=== PATIENT | male | born 1990 | race Asian ===

== ENCOUNTER 2024-05-23 09:48 | Outpatient (AMB) | payer OTHER, SELFPAY ==
--- NOTE | 2024-05-23 11:30 | MHC.OFFWIV ---
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 He had what sounds to be an ORIF in 03/2019 following an injury/fall. He states he had surgery at [facility] however I cannot locate records. He states that since surgery, he has had pain in that elbow, difficulty with some ROM movements, and numbness/tingling in right hand. He also has protruding area on dorsal aspect of arm at area of lateral epicondyle, which he states has been present since surgery. At 1 point he was referred to orthopedic surgeon in [place]. 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 This was done in 07/2020, and unfortunately patient never was scheduled for any follow-up with this surgeon. He was also recently in [place] earlier this month and had an x-ray done there. He was told that his hardware appears to large and should be removed. He does not have a PCP here, however is scheduled for a new patient visit in October of 2024. [employer] [id number] used for this visit. [facility] Social History Patient Tobacco Use Status: Current everyday Tobacco user Review of Systems Const All systems reviewed & are unremarkable except as noted in HPI and below Physical Exam Vital Signs: Last Vital Signs Pulse 71 05/23/24 11:31 BP 130/98 H 05/23/24 11:31 Pulse Ox 98 05/23/24 11:31 Oxygen Delivery Method Room Air 05/23/24 11:31 BMI result Body Mass Index 24.9 Const General: cooperative, healthy appearing and no acute distress Limitations: language barrier (Mandarin speaking) HEENT Head: Yes normal to inspection Resp Effort & Inspection: normal respiratory effort Skin General skin exam: no rashes or lesions noted Neuro General: moves all extremities and deep tendon reflexes 2+ bilaterally Extrem Right upper extremity: normal capillary refill and elbow/forearm Details: abnormal to inspection (enlarged area over lat epicondyle, no erythema or fluctuance), abnormal ROM (limited flexion and pronation/supination, full extension, ) and deformity (as noted) Location: of the elbow Psych Appearance: grossly normal Mental Status: mental status grossly normal Speech and movement: Normal speech and movement present Assessment & Plan Assessment & Plan (1) Right elbow pain: Code(s): M25.521 - Pain in right elbow Plan: Discussed with patient and partner present with him that he should have orthopedic evaluation. No acute findings on exam - complaints have been chronic since surgery. He was seen in [place] earlier this month and XR imaging indicated that perhaps hardware should be removed/replaced - per patient. He is not established with ortho in this area since his surgery in 2019. He would like to go to [facility] if possible. [facility] has an ortho urgent care in [place] which is open today. I informed patient of this and he is going to be seen there today if possible. All questions were answered. Patient will also f/u with PCP. Visit via [employer]. Coding Level of Care Code Est Pt Level 4 (45168) Diagnoses Right elbow pain M25.521
[2024-05-23 11:31] VITALS: BP 130/98; PULSE 71; O2SAT 98; BMI 24.9
== END 2024-05-23 12:54 | disposition home or self-care (01) ==
PROVIDERS: Visit Provider Nurse Practitioner Family
DX: M25.521 Pain in right elbow (principal)

== ENCOUNTER → 2024-05-23 09:48 | Outpatient (BNVA) | payer OTHER, SELFPAY | PROVIDERS: Visit Provider Nurse Practitioner Family | DX: M25.521 Pain in right elbow (principal) | CPT/HCPCS: 99212 ==

== ENCOUNTER 2024-11-04 12:43 | Outpatient (AMB) | payer OTHER, SELFPAY ==
[2024-11-04 12:53] VITALS: BP 122/80; PULSE 62; O2SAT 96; BMI 25.8
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
== END 2024-11-04 13:17 | disposition home or self-care (01) ==
PROVIDERS: Visit Provider Nurse Practitioner Family
DX: Z00.01 Encounter for general adult medical examination with abnormal findings (principal)

== ENCOUNTER → 2024-11-04 12:43 | Outpatient (BNVA) | payer OTHER, SELFPAY | PROVIDERS: Visit Provider Nurse Practitioner Family | DX: Z00.01 Encounter for general adult medical examination with abnormal findings (principal); F17.210 Nicotine dependence, cigarettes, uncomplicated; Z71.6 Tobacco abuse counseling; Z98.890 Other specified postprocedural states | CPT/HCPCS: 96127; 99385 ==

== ENCOUNTER 2024-11-24 09:16 | Outpatient (REF) | payer OTHER, SELFPAY ==
[2024-11-24 10:11] LABS: MANUAL DIFF FLAG NO
[2024-11-24 10:21] LABS: Appearance Urine Clear; Color Urine Yellow; Glucose Urine UA Negative (Negative); Leukocyte Esterase Urine Negative (Negative); Nitrite Urine Negative (Negative); Urine Blood Negative (Negative); Urine Ketones Negative (Negative); Urine Protein Negative (Neg-Trace)
[2024-11-24 10:33] LABS: Basophils Percent Auto 0.4 % (0-2); Eosinophils Absolute Auto 0.1 X10*3/uL (0.0-0.4); Eosinophils Percent Auto 1.3 % (0-4); Hematocrit 44.7 % (42.0-52.0); Hemoglobin 15.2 g/dl (14.0-18.0); Imm Gran Abs Auto 0.02 X10*3/uL (0.00-0.03); Imm Gran Pct Auto 0.3 % (0.0-0.4); Lymphocytes Absolute Auto 2.8 X10*3/uL (1.2-4.9); Lymphocytes Percent Auto 40.8 % (20-40); Mean Corpuscular Hemoglobin 30.8 pg (27.0-33.0); Mean Corpuscular Volume 90.5 fL (80.0-98.0); Mean Platelet Volume 9.7 fL (9.4-12.4); Monocytes Absolute Auto 0.5 X10*3/uL (0.1-1.2); Monocytes Percent Auto 7.9 % (2-11); Neutrophils Absolute Auto 3.4 x10*3/uL (2.0-8.3); Neutrophils Percent Auto 49.3 % (45-73); Platelet Count 211 X10*3/uL (160-400); Red Blood Count 4.94 X10*6/uL (4.60-5.80); White Blood Count 6.8 X10*3/uL (4.8-10.8)
[2024-11-24 11:16] LABS: Alanine Aminotransferase 71 U/L (0-40); Albumin Level 4.5 g/dL (3.5-5.0); Alkaline Phosphatase 71 U/L (39-117); Anion Gap 10 (12-20); Aspartate Amino Transferase 36 U/L (5-37); Bilirubin Total 0.6 mg/dL (0.0-1.0); Blood Urea Nitrogen 11 mg/dL (9-16); Calcium 8.9 mg/dL (8.4-10.2); Carbon Dioxide 26 mmol/L (22-29); Chloride 109 mmol/L (96-108); Cholesterol 179 mg/dL (<200); Estimated Glomerular Filt Rate > 60; Glucose Fasting 91 mg/dL (60-99); HDL Cholesterol 37 mg/dL (>40); LDL Cholesterol Calculated 114 mg/dL (<100); Potassium 3.8 mmol/L (3.3-5.1); Sodium 141 mmol/L (135-145); Total Protein 6.8 g/dL (6.5-8.0); Triglycerides 143 mg/dL (<150)
[2024-11-24 11:33] LABS: TSH reflex Free T4 1.63 uIU/mL (0.32-4.0)
== END 2024-11-24 09:17 | disposition home or self-care (01) ==
LOC: HO.HMGCLDS 09:16
PROVIDERS: PCP Nurse Practitioner Family; Visit Provider Nurse Practitioner Family
DX: Z00.01 Encounter for general adult medical examination with abnormal findings (principal)
CPT/HCPCS: 36415; 80053; 80061; 81003; 84443; 85025

== ENCOUNTER 2025-03-24 08:27 | Outpatient (REF) | payer OTHER, SELFPAY ==
--- NOTE | ~2025-03-24 | US_ITS ---
CLINICAL HISTORY: R74.8 - Abnormal levels of other serum enzymes US abdomen complete Comparison: None provided Findings: The liver is normal in size and echotexture. No focal liver lesions are seen or biliary dilatation. Gallbladder nondistended. Gallbladder wall not thickened at 2 mm. CBD nondilated at 4.5 mm. There are no gallstones. Sonographic Michelle's sign is negative. Right kidney measures 10 cm and left kidney measures 11 cm. No focal cortical renal lesions or signs of obstructive uropathy. Spleen unremarkable measuring 10 cm and without focal lesions. Pancreas not adequately visualized due to overlying bowel gas. No evidence of free fluid. IMPRESSION: 1. Normal complete abdominal ultrasound. This document has been electronically signed by: Brennon Sheffield MD on 03/24/2025 09:56:48
--- OUTSIDE RECORDS SUMMARY | 2025-03-24 09:05 | XMS_ITS | Encounter Summary ---
Author Organization [facility] Address [address] [place] [address] Phone Care Team Providers Care Periodicals Clerk Name Role Phone Drew Maldonado MD Primary Care Provider [phone] Encounter Details Date Type Department Care Team (Late st Contact Info) Description 08/04/2020 Procedure Pass [facility] [address] [place] [address] Social History Tobacco Use Types Packs/Day Years Used Date Smoking Tobacco: Never Assessed Sex and Gender Information Value Date Recorded Sex Assigned at Male 12/09/2019 4:13 PM EDT Legal Sex Male 10:12 AM EDT Gender Identity Male 12/09/2019 4:13 PM EDT Sexual Orientation Straight 12/09/2019 4: 13 PM EDT documented as of this encounter Plan of Treatment Not on file documented as of this encounter Visit Diagnoses Not on filedocumented in this encounter Care Teams Periodicals Clerk Relationship Specialty Start Date End Date Drew Maldonado MD [address] [place] [address] [place] [address] PCP - General Internal Medicine 08/14/19 documented as of this encounter Additional Source Comments The information contained in this document represents components of the legal health record. It is not the complete legal health record.[facility]
--- OUTSIDE RECORDS SUMMARY | 2025-03-24 09:05 | XMS_ITS | Encounter Summary ---
Author Organization [facility] Address [address] [place] [address] [place] [address] Phone Care Team Providers Care Forming Machine Tender Name Role Phone Drew Maldonado MD Primary Care Provider [phone] Reason for Referral * MRI/CAT Scan - Closed Specialty Diagnoses / Procedures Referred By Contac t Referred To Contact Radiology Diagnoses Closed fracture of right elbow, initial encounter Procedures CT 3D Reconstruction Elbow CHG 3D RENDERING W/INTERP&POSTPROC DIFF WORK STATION Dylan Garcia MD Phone: tel: fax: [email or web address] Referral ID Status Reason Start Date Expiration Date Visits Re quested Visits Authorized [id number] Closed 08/04/2020 08/04/2020 1 1 Encounter Details Date Type Department Care Team (Latest Contact Info) Description 08/04/2020 Ancillary Orders [facility] Department of Orthopaedic Surgery, Hand & Upper Extremity Service [address] [place] [address], [address], [address] [place] [address] Dylan Garcia MD [address] [place] [id number] [email or web address] Closed fracture of right elbow, initial encounter Social History Tobacco Use Types Packs/Day Years [...] on file documented as of this encounter Results * CT 3D Reconstruction Elbow (08/04/2020 8:35 PM EST) Anatomical Region Laterality Modality Elbow Left, Elbow Right Computed Tomography 08/05/2020 8:46 AM EST Impressions 08/05/2020 11:32 AM EST Radial head arthroplasty with unchanged lucency at the bone-metal interface. Old posttraumatic and postsurgical changes involving the lateral elbow and coronoid process. No acute fracture. 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 ATTESTATION: I, Dr. Marta Cain as teaching physician, have reviewed the images for this case and if necessary edited the report originally created by Dr. Alec Barba. Narrative 08/05/2020 11:32 AM EST TECHNIQUE: Diagnostic CT ELBOW WITHOUT CONTRAST (RIGHT), CT 3D RECONSTRUCTION ELBOW Sagittal and coronal reformatted images were obtained. COMPARISON: XR ELBOW 3 OR MORE VIEWS (RIGHT) ; XR ELBOW 3 OR MORE VIEWS (RIGHT) 15:34:33 FINDINGS: Again noted are postoperative changes from prior radial head arthroplasty with mild lucency at the bone-metal interface, similar to prior studies. Alignment is unchanged. There is no periprosthetic fracture. Lucent anchor tracks are seen in the humeral lateral epicondyle. Old posttraumatic and postsurgical changes involve the coronoid process with ossific fragments within the adjacent anterior soft tissues and heterotopic ossification in the lateral elbow. 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 There is small elbow joint effusion. There is diffuse thickening involving the proximal common extensor tendon/musculature, in keeping with postoperative changes, not well characterized on CT. No focal muscle atrophy. Procedure Note Marta Cain MD - 08/05/2020 TECHNIQUE: Diagnostic CT ELBOW WITHOUT CONTRAST (RIGHT), CT 3DRECONSTRUCTION ELBOW Sagittal and coronal reformatted images were obtained. COMPARISON: XR ELBOW 3 OR MORE VIEWS (RIGHT) ; XR ELBOW 3 ORMORE VIEWS (RIGHT) 15:34:33 FINDINGS: Again noted are postoperative changes from prior radial head arthroplastywith mild lucency at the bone-metal interface, similar to prior studies.Alignment is unchanged. There is no periprosthetic fracture. Lucent anchortracks are seen in the humeral lateral epicondyle. Old posttraumatic andpostsurgical changes involve the coronoid process with ossific fragmentswithin the adjacent anterior soft tissues and heterotopic ossification inthe lateral elbow. 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 There is small elbow joint effusion. There is diffuse thickening involving the proximal common extensortendon/musculature, in keeping with postoperative changes, not wellcharacterized on CT. No focal muscle atrophy. IMPRESSION: Radial head arthroplasty with unchanged lucency at the bone-metalinterface. Old posttraumatic and postsurgical changes involving the lateral elbow andcoronoid process. No acute fracture. 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 ATTESTATION: I, Dr. Marta Cain as teaching physician, have reviewedthe images for this case and if necessary edited the report originallycreated by Dr. Alec Barba. Dylan Garcia MD IMG CT Final Result documented in this encounter Visit Diagnoses Diagnosis Closed fracture of right elbow, initial encounter Closed fracture of right elbow, initial encounter documented in this encounter Care Teams Forming Machine Tender Relationship Specialty Start Date End Date Drew Maldonado MD [address] [place] [address] [place] [address] PCP - General Internal Medicine 08/14/19 documented as of this encounter Additional Source Comments The information contained in this document represents components of the legal health record. It is not the complete legal health record.[facility]
--- OUTSIDE RECORDS SUMMARY | 2025-03-24 09:05 | XMS_ITS | Encounter Summary ---
Author Organization [facility] Address [address] [place] [address] Phone Care Team Providers Care Shaper Set Up Operator Name Role Phone Drew Maldonado MD Primary Care Provider [phone] [phone] Encounter Details Date Type Department Care Team (Late st Contact Info) Description 08/04/2020 Procedure Pass [facility] [address] [facility] [place] [address] Social History Tobacco Use Types Packs/Day Years [...] on filedocumented in this encounter Care Teams Shaper Set Up Operator Relationship Specialty Start Date End Date Drew Maldonado MD [address] [place] [address] [place] [address] PCP - General Internal Medicine 08/14/19 documented as of this encounter Additional Source Comments The information contained in this document represents components of the legal health record. It is not the complete legal health record.[facility]
--- OUTSIDE RECORDS SUMMARY | 2025-03-24 09:05 | XMS_ITS | Clinical Summary ---
Author Organization [facility] Address [address] [place] [address] Phone Care Team Providers Care Nursery Technician Name Role Phone Drew Maldonado MD Primary Care Provider [phone] Social History Tobacco Use Types Packs/Day Years Used Date Smoking Tobacco: Never Assessed Education Answer Date Recorded Are you interested in more education? Not on maximino e 09/22/2022 Are you concerned about learning? Not on file 09/22/2022 No 09/22/2022 No 09/22/2022 Digital Access Answer Date Recorded No 10/24/2022 No 10/24/2022 Reliable internet access at home? Not on file 10/24/2022 Device with a working camera? Not on file Sex and Gender Information Value Date Recorded Sex Assigned at Male 12/09/2019 4:13 PM EDT Legal Sex Male 10:12 AM EDT Gender Identity Male 12/09/2019 4:13 PM EDT Sexual Orientation Straight 12/09/2019 4: 13 PM EDT Plan of Treatment Health Maintenance Due Date Last Done Comments Adult Td,Tdap Booster 1988 LIPID PANEL 1988 DEPRESSION SCREENING 2000 SMOKING Hx and SMOKELESS TOB ACCO SCREENING 2001 HEPATITIS C SCREENING 2006 HIV ONE-TIME SCREENING (18-6 5 YEARS) 2006 INFLUENZA VACCINE (#1) 2024 COVID-19 VACCINE (2024-2 6 season) 2025 HEPATITIS A VACCINES Aged Out No long er eligible based on patient's age to complete this topic HIB VACCINES Aged Out No longer eligi ble based on patient's age to complete this topic MENINGOCOCCAL VACCINES (ACWY) Aged Out No longer eligible based on patient's age to complete this topic MENINGOCOCCAL VACCINES (B) Aged Out N o longer eligible based on patient's age to complete this topic PNEUMOCOCCAL VACCINES (0-49 years) Aged Out No longer eligible based on patient's age to complete this topic Medical Devices Not on file [place] [address] ACO DODIE SNIDER [address] ACO ([place]) DODIE MEEK[address] [facility]CO [facility] [place] [address] [place] [address] [place] [address] [place] [address] ACO Care Teams Nursery Technician Relationship Specialty Start Date End Date Drew Maldonado MD [address] [place] [address] [place] [address] PCP - General Internal Medicine 08/14/19 Additional Source Comments The information contained in this document represents components of the legal health record. It is not the complete legal health record.[facility]
== END 2025-03-24 08:28 | disposition home or self-care (01) ==
LOC: HO.HMGCX 08:27
PROVIDERS: PCP Nurse Practitioner Family; Visit Provider Nurse Practitioner Family
DX: R74.8 Abnormal levels of other serum enzymes (principal)
CPT/HCPCS: 76700

== ENCOUNTER → 2025-03-24 08:29 | Outpatient (BNV) | payer OTHER, SELFPAY | PROVIDERS: PCP Nurse Practitioner Family; Visit Provider Radiology Diagnostic Radiology | DX: R74.8 Abnormal levels of other serum enzymes (principal) | CPT/HCPCS: 76700 ==

== ENCOUNTER 2025-04-06 10:03 | Outpatient (REF) | payer OTHER, SELFPAY ==
--- OUTSIDE RECORDS SUMMARY | 2025-04-06 11:40 | XMS_ITS | Encounter Summary ---
Author Organization [facility] Address [address] [place] [address] [place] [phone] Phone Care Team Providers Care Manager Supply Chain Planning Name Role Phone Drew Maldonado MD Primary Care Provider [phone] Reason for Referral * MRI/CAT Scan - Closed Specialty Diagnoses / Procedures Referred By Contac t Referred To Contact Radiology Diagnoses Closed fracture of right elbow, initial encounter Procedures CT 3D Reconstruction Elbow CHG 3D RENDERING W/INTERP&POSTPROC DIFF WORK STATION Dylan Garcia MD Phone: tel: fax: mailto:[email or web address] Referral ID Status Reason Start Date Expiration Date Visits Re quested Visits Authorized [id number] Closed 08/04/2020 08/04/2020 1 1 Encounter Details Date Type Department Care Team (Latest Contact Info) Description 08/04/2020 Ancillary Orders [facility] Department of Orthopaedic Surgery, Hand & Upper Extremity Service [address] [place] [address], [address] Floor, [address] [place] [address] Dylan Garcia MD [address] [place] [phone] [email or web address] Closed fracture of right elbow, initial encounter [...] with small elboweffusion. ATTESTATION: I, Dr. Marta Cian as teaching physician, have reviewedthe images for this case and if necessary edited the report originallycreated by Dr. Alec Barba. Dylan Garcia MD IMG CT Final Result documented in this encounter Visit Diagnoses Diagnosis Closed fracture of right elbow, initial encounter Closed fracture of right elbow, initial encounter documented in this encounter Care Teams Manager Supply Chain Planning Relationship Specialty Start Date End Date Drew Maldonado MD [address] [place] [address] [place] [address] PCP - General Internal Medicine 08/14/19 documented as of this encounter Additional Source Comments The information contained in this document represents components of the legal health record. It is not the complete legal health record.[facility]
--- OUTSIDE RECORDS SUMMARY | 2025-04-06 11:40 | XMS_ITS | Encounter Summary ---
Author Organization [facility] Address [address] [place] [address] Phone Care Team Providers Care Beach Attendant Name Role Phone Drew Maldonado MD Primary Care Provider [phone] Encounter Details Date Type Department Care Team (Late st Contact Info) Description 08/04/2020 Procedure Pass [facility] Imaging [address] [place] [address] Social History Tobacco Use Types Packs/Day Years [...] on filedocumented in this encounter Care Teams Beach Attendant Relationship Specialty Start Date End Date Drew Maldonado MD [address] [place] [address] [place] [address] PCP - General Internal Medicine 08/14/19 documented as of this encounter Additional Source Comments The information contained in this document represents components of the legal health record. It is not the complete legal health record.[facility]
--- OUTSIDE RECORDS SUMMARY | 2025-04-06 11:41 | XMS_ITS | Encounter Summary ---
Author Organization [facility] Address [address] [place] [phone] Phone Care Team Providers Care Stockroom Worker Name Role Phone Drew Maldonado MD Primary Care Provider [phone] Encounter Details Date Type Department Care Team (Late st Contact Info) Description 08/04/2020 Procedure Pass [facility] [address] [facility], [address] [place] [address] Social History Tobacco Use Types Packs/Day Years [...] on filedocumented in this encounter Care Teams Stockroom Worker Relationship Specialty Start Date End Date Drew Maldonado MD [address] [place] [address] [place] [address] PCP - General Internal Medicine 08/14/19 documented as of this encounter Additional Source Comments The information contained in this document represents components of the legal health record. It is not the complete legal health record.[facility]
--- OUTSIDE RECORDS SUMMARY | 2025-04-06 11:41 | XMS_ITS | Clinical Summary ---
Author Organization [facility] Address [address] [place] [address] Phone Care Team Providers Care Screen Printing Stencil Preparer Name Role Phone Drew Maldonado MD Primary Care Provider [phone] Social History Tobacco Use Types Packs/Day Years [...] on patient's age to complete this topic IPV VACCINES Aged Out No longer eligi ble [...] topic Medical Devices Not on file [place] [address] [employer] [address] [place] [address] [place] [address] [address] [place] [address] [employer] [facility] [place] [address] [place] [address] [employer] [employer] Care Teams Screen Printing Stencil Preparer Relationship Specialty Start Date End Date Drew Maldonado MD [address] [place] [address] Dr Best [place] [id number] PCP - General Internal Medicine 08/14/19 Additional Source Comments The information contained in this document represents components of the legal health record. It is not the complete legal health record.[facility]
[2025-04-06 14:34] LABS: Alanine Aminotransferase 47 U/L (0-40); Albumin Level 4.8 g/dL (3.5-5.0); Alkaline Phosphatase 68 U/L (39-117); Anion Gap 10 (12-20); Aspartate Amino Transferase 32 U/L (5-37); Blood Urea Nitrogen 12 mg/dL (9-16); Calcium 9.2 mg/dL (8.4-10.2); Carbon Dioxide 24 mmol/L (22-29); Chloride 110 mmol/L (96-108); Estimated Glomerular Filt Rate > 60; Potassium 4.0 mmol/L (3.3-5.1); Sodium 140 mmol/L (135-145); Total Protein 7.2 g/dL (6.5-8.0)
[2025-04-07 06:36] LABS: HBS Num1 1.63 mIU/mL (0-7.99); HBc Num1 0.17 S/CO (0.00-0.79); HBsAGNum1 0.54 S/CO (0.00-0.99); Hepatitis A Antibody IgM 0.16 Index (0-0.79); Hepatitis B Surface Antigen Negative (Negative); ~HepC Num1 0.08 S/CO (0.00-0.79); ~Hepatitis A Antibody IgM Nonreactive (Nonreactive); ~Hepatitis B Surface Antibody NONREACTIVE (Nonreactive); ~Hepatitis C Antibody Nonreactive (Nonreactive)
== END 2025-04-06 10:04 | disposition home or self-care (01) ==
LOC: HO.HMGCLDS 10:03
PROVIDERS: PCP Nurse Practitioner Family; Visit Provider Nurse Practitioner Family
DX: Z11.59 Encounter for screening for other viral diseases (principal); R74.8 Abnormal levels of other serum enzymes
CPT/HCPCS: 36415; 80053; 86704; 86706; 86709; 86803; 87340